=== PATIENT | female | born 2000 | race Caucasian/White ===

== ENCOUNTER 2023-06-14 14:37 | Outpatient (CLI) | payer OTHER, SELFPAY ==
[2023-06-14 23:05] LABS: Chlamydia DNA Amplified* NOT DETECTED (No Detected); GC DNA Amplified* NOT DETECTED (No Detected)
== END 2023-06-14 14:38 | disposition home or self-care (01) ==
LOC: LKVREF 14:38
PROVIDERS: PCP Physician Assistant Medical; Visit Provider Nurse Practitioner Family
DX: Z11.3 Encounter for screening for infections with a predominantly sexual mode of transmission (principal)
CPT/HCPCS: 87491; 87591

== ENCOUNTER 2023-10-17 15:56 | Outpatient (CLI) | payer OTHER, SELFPAY | END 2023-10-17 15:57 | disposition home or self-care (01) | LOC: LKVREF 15:57 | PROVIDERS: PCP Physician Assistant Medical; Visit Provider Emergency Medicine | DX: R21 Rash and other nonspecific skin eruption (principal) | CPT/HCPCS: 86618 ==